=== PATIENT | male | born 1965 | race Caucasian/White ===

== ENCOUNTER 2024-05-29 14:57 | Inpatient (IN) | payer BC ==
[2024-05-29] MEDS ORDERED: Diazepam 5 MG TAB PO PRN (15:35)
[2024-05-29 16:30] LABS: #Basophils 0.09 10x3/uL (0.0-0.2); %Basophils 1.3 % (0.0-1.0); %Eosinophils 2.5 % (0.0-10.0); %Lymphocytes 32.1 % (21.0-51.0); %Monocytes 12.5 % (0.0-10.0); %Neutrophils 51.3 % (42.0-75.0); Hemoglobin 14.1 g/dL (14.0-18.0); Mean Corpuscular Hemoglobin 29.6 pg (27.0-31.0); Mean Corpuscular Volume 92.2 fL (78.0-98.0); Mean Platelet Volume 10.6 fL (7.4-10.4); Platelet Count 252 10x3/uL (130-400); RBC Distribution Width 12.6 % (11.5-14.5); Red Blood Cell (RBC) Count 4.77 mill/uL (4.70-6.10)
[2024-05-29 16:37] LABS: Hemoglobin A1c 5.8 % (4.0-6.0)
[2024-05-29 16:43] LABS: Anion Gap 11 mmol/L (10-20); BUN (Urea Nitrogen) 10 mg/dL (8.4-25.7); Calc. Creatinine Clearance 174 mL/min (70-130); Calcium 8.8 mg/dL (7.8-10.44); Carbon Dioxide 24 mmol/L (22-29); Chloride 108 mmol/L (98-107); Estimated GFR 103; Glucose 90 mg/dL (70-105); Potassium 3.7 mmol/L (3.5-5.1); Sodium 139 mmol/L (136-145)
[2024-05-29 16:44] LABS: PTT 27.9 sec (22.9-36.1); Prothrombin Time 12.9 sec (12.0-14.7)
[2024-05-29] MEDS: Communication Order-Pharmacy FS SCH (16:50)
[2024-05-29] MEDS ORDERED: Acetaminophen 650 MG Suppository PR PRN (17:45)
[2024-05-29] MEDS ORDERED: Bisacodyl 5 MG TAB PO PRN (17:45)
[2024-05-29] MEDS ORDERED: Ondansetron PF 4 MG/2 ML Vial IVP PRN (17:45)
[2024-05-29] MEDS: Acetaminophen 325 MG TAB PO SCH (18:00)
[2024-05-30 04:59] LABS: #Basophils 0.08 10x3/uL (0.0-0.2); %Basophils 1.1 % (0.0-1.0); %Eosinophils 2.4 % (0.0-10.0); %Lymphocytes 31.9 % (21.0-51.0); %Monocytes 11.3 % (0.0-10.0); Hemoglobin 14.9 g/dL (14.0-18.0); Mean Corpuscular HGB CONC 32.4 g/dL (32.0-36.0); Mean Corpuscular Hemoglobin 28.3 pg (27.0-31.0); Mean Corpuscular Volume 87.5 fL (78.0-98.0); Mean Platelet Volume 10.9 fL (7.4-10.4); Platelet Count 276 10x3/uL (130-400); RBC Distribution Width 12.7 % (11.5-14.5); Red Blood Cell (RBC) Count 5.26 mill/uL (4.70-6.10)
[2024-05-30 05:13] LABS: Anion Gap 12 mmol/L (10-20); BUN (Urea Nitrogen) 13 mg/dL (8.4-25.7); Calc. Creatinine Clearance 163 mL/min (70-130); Calcium 9.3 mg/dL (7.8-10.44); Carbon Dioxide 27 mmol/L (22-29); Chloride 107 mmol/L (98-107); Estimated GFR 101; Glucose 108 mg/dL (70-105); Sodium 142 mmol/L (136-145)
[2024-05-30] MEDS ORDERED: Bupivacaine PF 0.5% 30 ML VIAL ONE (06:38)
[2024-05-30] MEDS ORDERED: Dexamethasone 4 mg/ml Vial ONE (06:38)
[2024-05-30] MEDS ORDERED: PHENYLEPHRINE-NS 100 MCG/ML 10 ML SYRINGE ONE ×3 (06:38→10:56)
[2024-05-30] MEDS ORDERED: Albumin 5% 500 ML ONE (06:38)
[2024-05-30] MEDS ORDERED: EPINEPHrine 1 MG/ML VIAL ONE (06:38)
[2024-05-30] MEDS ORDERED: Lidocaine 1% MPF 2 ML VIAL ONE (06:40)
[2024-05-30] MEDS ORDERED: Heparin 10,000 UNITS/1 ML VIAL 30,000 UNITS in Sodium Chloride 0.9% 1,000 ML FS SCH (07:00)
[2024-05-30] MEDS ORDERED: CEFAZOLIN 2 GM VIAL ONE (07:21)
[2024-05-30] MEDS ORDERED: Sodium Chloride 0.9% 100 ML ONE (07:22)
[2024-05-30] MEDS ORDERED: Midazolam HCl 5 mg/ml Vial ONE (07:24)
[2024-05-30] MEDS ORDERED: Fentanyl 250 MCG/5 ML VIAL ONE (07:25)
[2024-05-30] MEDS ORDERED: PROPOFOL 20 ML ONE (07:29)
[2024-05-30] MEDS ORDERED: CEFAZOLIN 2 GM in Sodium Chloride 0.9% 100 ML IVPB SCH (07:30)
[2024-05-30] MEDS ORDERED: Sodium Bicarb 50 mEq/50 ML VIAL ONE (07:37)
[2024-05-30] MEDS ORDERED: Papaverine 60 MG/2 ML VIAL ONE (07:37)
[2024-05-30] MEDS ORDERED: Mannitol 12.5 GM/50 ML ONE (07:37)
[2024-05-30] MEDS ORDERED: Potassium Chloride 60 mEq (30 mL) VIAL ONE (07:37)
[2024-05-30] MEDS ORDERED: Thrombin 5000 UNITS/5 ML VIAL ONE (07:37)
[2024-05-30] MEDS ORDERED: Protamine Sulfate 250 MG/25 ML VIAL ONE (07:37)
[2024-05-30] MEDS ORDERED: Aminocaproic Acid 5 GM/20 ML VIAL ONE ×2 (07:37→08:18)
[2024-05-30] MEDS ORDERED: Cardioplegic Soln 1,000 ML BAG ONE (07:37)
[2024-05-30] MEDS ORDERED: Heparin 5,000 UNITS/ML VIAL ONE (07:37)
[2024-05-30] MEDS ORDERED: Vancomycin 1 GM VIAL ONE ×2 (07:37→10:20)
[2024-05-30] MEDS ORDERED: Heparin 30,000 units/30 ml VIAL ONE (07:37)
[2024-05-30] MEDS ORDERED: Lidocaine 2% PF 100 mg/5 ml Syringe ONE (07:37)
[2024-05-30] MEDS ORDERED: Magnesium 5 GM/10 ML VIAL ONE (07:37)
[2024-05-30] MEDS ORDERED: Calcium Chloride 1 GM/10 ML Abboject SYRINGE ONE (07:37)
[2024-05-30] MEDS ORDERED: Ondansetron PF 4 MG/2 ML Vial ONE (08:18)
[2024-05-30] MEDS ORDERED: Etomidate 40 MG (20 mL) VIAL ONE (08:18)
[2024-05-30] MEDS ORDERED: Rocuronium Bromide 10 MG/ML (10ML VIAL) ONE ×2 (08:18→10:17)
[2024-05-30] MEDS ORDERED: Lidocaine 1% PF 5 ML VIAL ONE (08:18)
[2024-05-30] MEDS ORDERED: ePHEDrine Sulfate 50 MG/10 ML VIAL ONE (08:19)
[2024-05-30] MEDS ORDERED: Sodium Chloride 0.9% 250 ML 250 ML ONE (08:19)
[2024-05-30] MEDS ORDERED: Norepinephrine 4 MG/4 ML VIAL ONE (08:19)
[2024-05-30 08:26] LABS: Cardiac Risk 4.8 (Less than 4.5)
[2024-05-30] MEDS ORDERED: hydrALAZINE 20 MG/ML VIAL SLOW IVP PRN (11:10)
[2024-05-30] MEDS ORDERED: NOREPINEPHRINE 8 MG/250 ML-D5W 250 ML IVPB PRN (11:10)
[2024-05-30] MEDS ORDERED: Nitroglycerin 50 MG/250 ML BOT 250 ML IVPB PRN (11:10)
[2024-05-30] MEDS ORDERED: fentaNYL 50 mcg/mL 1 mL Vial SLOW IVP PRN (11:10)
[2024-05-30] MEDS ORDERED: Bisacodyl 5 MG TAB PO PRN (11:10)
[2024-05-30] MEDS ORDERED: Bisacodyl 10 MG SUPP PR PRN (11:10)
[2024-05-30] MEDS ORDERED: traMADol HCl 50 MG TAB PO PRN (11:10)
[2024-05-30] MEDS ORDERED: Mag-Al 1200 mg/1200 mg/30 ML UDCUP PO PRN (11:10)
[2024-05-30] MEDS ORDERED: Guaifenesin DM 100-10/5 ML UDCUP PO PRN (11:10)
[2024-05-30] MEDS ORDERED: Acetaminophen 325 MG TAB PO PRN (11:10)
[2024-05-30] MEDS ORDERED: Ipratropium/Albuterol 3 ML NEB NEB PRN (11:10)
[2024-05-30] MEDS ORDERED: Albumin 5% 12.5 GM (250 mL) BOT IVPB PRN ×2 (11:10)
[2024-05-30] MEDS ORDERED: Magnesium 2 GM/50 ML(in water) 2 GM in Premix 1 BAG IVPB SCH (11:15)
[2024-05-30 11:24] LABS: Actual Bicarbonate (HCO3a) 23.2 mEq/L (22-28); Base Excess (BEa) -3.1 mEq/L (-2.0 to +3.0); CO2 Tension 46.2 mmHg (35.0-45.0); Calcium, Ionized (arterial) 1.17 mmol/L (1.12-1.30); Carboxyhemoglobin (COHb) 0.6 gm% (0.0-3.0); Hematocrit-ABG 41 % (42.0-52.0); Hemoglobin (Hb) 13.9 g/dL (14.0-18.0); O2 Tension (PaO2), arterial 117.4 mmHg (80.0-100.0); Potassium - ABG Lab 3.83 mmol/L (3.70-5.30); pH, Arterial 7.319 (7.35-7.45)
[2024-05-30 11:26] LABS: Puncture Site Arterial Line
[2024-05-30] MEDS ORDERED: INSULIN REGULAR IN 0.9 % NACL 100 UNITS in Premix 1 BAG IVPB SCH (11:30)
[2024-05-30] MEDS ORDERED: Dextrose 50% Abboject 50 ML SYRINGE SLOW IVP PRN (11:30)
[2024-05-30] MEDS ORDERED: Dextrose 5% in Water 1,000 ML IV PRN (11:30)
[2024-05-30] MEDS ORDERED: Glucagon 1 MG/ML KIT SC PRN (11:30)
[2024-05-30] MEDS: Morphine 2 MG/ML VIAL SLOW IVP PRN (11:38)
[2024-05-30 11:51] LABS: #Basophils 0.06 10x3/uL (0.0-0.2); %Basophils 0.3 % (0.0-1.0); %Eosinophils 0.9 % (0.0-10.0); %Lymphocytes 18.4 % (21.0-51.0); %Monocytes 5.7 % (0.0-10.0); Hematocrit 40.4 % (42.0-52.0); Hemoglobin 13.4 g/dL (14.0-18.0); Mean Corpuscular HGB CONC 33.2 g/dL (32.0-36.0); Mean Corpuscular Volume 87.4 fL (78.0-98.0); Platelet Count 192 10x3/uL (130-400); RBC Distribution Width 12.8 % (11.5-14.5); Red Blood Cell (RBC) Count 4.62 mill/uL (4.70-6.10)
[2024-05-30] MEDS: Magnesium 2 GM/50 ML(in water) 2 GM in Premix 1 BAG IVPB SCH (11:51)
[2024-05-30] MEDS: Ketorolac Tromethamine 30 MG (1 mL) VIAL IVP SCH (11:51)
[2024-05-30] MEDS: D5 1/2 NS w/20 mEq KCL 1,000 ML IV SCH (11:52)
[2024-05-30 12:06] LABS: Anion Gap 10 mmol/L (10-20); BUN (Urea Nitrogen) 10 mg/dL (8.4-25.7); Calc. Creatinine Clearance 186 mL/min (70-130); Calcium 8.2 mg/dL (7.8-10.44); Carbon Dioxide 24 mmol/L (22-29); Chloride 113 mmol/L (98-107); Estimated GFR 105; Glucose 132 mg/dL (70-105); Potassium 3.7 mmol/L (3.5-5.1); Sodium 143 mmol/L (136-145)
[2024-05-30 12:16] LABS: INR-International Normal Ratio 1.2; Prothrombin Time 15.7 sec (12.0-14.7)
[2024-05-30 12:17] LABS: PTT 27.4 sec (22.9-36.1)
[2024-05-30] MEDS: Potassium Chloride 20 MEQ (100 mL) BAG IVPB PRN (13:05)
[2024-05-30 15:03] LABS: Actual Bicarbonate (HCO3a) 21.6 mEq/L (22-28); Base Excess (BEa) 0.5 mEq/L (-2.0 to +3.0); CO2 Tension 25.9 mmHg (35.0-45.0); Carboxyhemoglobin (COHb) 0.9 gm% (0.0-3.0); Hematocrit-ABG 41 % (42.0-52.0); O2 Tension (PaO2), arterial 120.6 mmHg (80.0-100.0); Potassium - ABG Lab 3.87 mmol/L (3.70-5.30); pH, Arterial 7.539 (7.35-7.45)
[2024-05-30 15:04] LABS: Puncture Site Arterial Line
[2024-05-30 15:05] LABS: ALV-art Gradient 60.925 mmHg (0-20)
[2024-05-30] MEDS: Insulin Regular, Human 100 UNIT/ML 10 ML VIAL SC PRN (16:24)
[2024-05-30] MEDS: CEFAZOLIN 2 GM in Sodium Chloride 0.9% 100 ML IVPB SCH (16:24)
[2024-05-30] MEDS: Ondansetron PF 4 MG/2 ML Vial IVP PRN (16:33)
[2024-05-30 17:23] LABS: Hematocrit 39.6 % (42.0-52.0); Hemoglobin 13.3 g/dL (14.0-18.0)
[2024-05-30 17:30] LABS: Potassium 3.8 mmol/L (3.5-5.1)
[2024-05-30] MEDS: Famotidine/PF 20 mg/2ml Vial SLOW IVP SCH (19:58)
[2024-05-30] MEDS: Atorvastatin Calcium 20 MG TAB PO SCH (19:58)
[2024-05-31 05:45] LABS: #Basophils Less than 0.03 10x3/uL (0.0-0.2); #Eosinphils Less than 0.03 10x3/uL (0.0-0.7); %Basophils 0.2 % (0.0-1.0); %Lymphocytes 9.5 % (21.0-51.0); %Neutrophils 78.1 % (42.0-75.0); Hemoglobin 12.1 g/dL (14.0-18.0); Mean Corpuscular HGB CONC 32.7 g/dL (32.0-36.0); Mean Corpuscular Hemoglobin 28.7 pg (27.0-31.0); Mean Corpuscular Volume 87.7 fL (78.0-98.0); Mean Platelet Volume 11.7 fL (7.4-10.4); Platelet Count 187 10x3/uL (130-400); Red Blood Cell (RBC) Count 4.22 mill/uL (4.70-6.10)
[2024-05-31 06:08] LABS: Anion Gap 8 mmol/L (10-20); BUN (Urea Nitrogen) 12 mg/dL (8.4-25.7); Calc. Creatinine Clearance 175 mL/min (70-130); Carbon Dioxide 23 mmol/L (22-29); Chloride 111 mmol/L (98-107); Estimated GFR 104; Glucose 130 mg/dL (70-105); Potassium 4.1 mmol/L (3.5-5.1); Sodium 138 mmol/L (136-145)
[2024-05-31] MEDS ORDERED: Milk Of Magnesia 30 ML UDCUP PO PRN (07:26)
[2024-05-31] MEDS ORDERED: Artificial Tear Ophth Sol 15 ML BOT EA EYE PRN (07:26)
[2024-05-31] MEDS ORDERED: Nitroglycerin 0.4 MG TAB (25 Tab Bottle) SL PRN (07:26)
[2024-05-31] MEDS ORDERED: Mineral Oil ENEMA PR PRN (07:26)
[2024-05-31] MEDS ORDERED: diphenhydrAMINE 25 MG CAP PO PRN (07:26)
[2024-05-31] MEDS: Aspirin 325 mg Enteric Coated Tablet PO SCH (08:20)
[2024-05-31] MEDS: Pantoprazole DR 40 MG TAB PO SCH (08:20)
[2024-05-31] MEDS: Magnesium 2 GM/50 ML(in water) 2 GM in Premix 1 BAG IVPB SCH (08:20)
[2024-05-31] MEDS ORDERED: Aspirin 325 MG TAB PO SCH (09:00)
[2024-05-31] MEDS ORDERED: Insulin Glargine 30 UNITS/0.3 ML VIAL SC PRN (11:16)
[2024-05-31] MEDS: fentaNYL 50 mcg/mL 1 mL Vial SLOW IVP PRN (16:01)
[2024-05-31] MEDS: traMADol HCl 50 MG TAB PO PRN (17:14)
[2024-06-01 21:07] VITALS: BP 118/70
[2024-06-02 05:14] VITALS: BMI 35.1
[2024-06-02 11:33] VITALS: TEMP 98.7
== END 2024-06-02 11:13 | disposition home or self-care (01) | DRG 236 ==
LOC: 2NO 14:57 → CCU 05-30 06:18
PROVIDERS: ADMIT Internal Medicine; ATTEND Internal Medicine
PROC: 02100Z9 Bypass Coronary Artery, One Artery from Left Internal Mammary, Open Approach (ICD-10-PCS; principal; 2024-05-30)
PROC: 021109W Bypass Coronary Artery, Two Arteries from Aorta with Autologous Venous Tissue, Open Approach (ICD-10-PCS; 2024-05-30)
PROC: 06BQ4ZZ Excision of Left Saphenous Vein, Percutaneous Endoscopic Approach (ICD-10-PCS; 2024-05-30)
PROC: 5A1221Z Performance of Cardiac Output, Continuous (ICD-10-PCS; 2024-05-30)
PROC: 02L70CK Occlusion of Left Atrial Appendage with Extraluminal Device, Open Approach (ICD-10-PCS; 2024-05-30)
DX: I25.10 Atherosclerotic heart disease of native coronary artery without angina pectoris (principal); E78.5 Hyperlipidemia, unspecified; K43.9 Ventral hernia without obstruction or gangrene; Z79.82 Long term (current) use of aspirin; Z86.16 Personal history of COVID-19; Z79.51 Long term (current) use of inhaled steroids
CPT/HCPCS: 36415; 36416; 71045; 80048; 80061; 82805; 83036; 85025; 85610; 85730; 86850; 86900; 86901; 93005; 93010; 93458; 93798; 94002; 99152; 99153; A4311; A4648; C1751; C1769; C1889; C1894; J0171; J0583; J0665; J1100; J1642; J1644; J1815; J1885; J2001; J2150; J2250; J2272; J2405; J2440; J2704; J2720; J3010; J3370; J3475; J3480; J3490; J7050; P9045; Q9967; S0017